=== PATIENT | female | born 1960 | race Two or more races ===

== ENCOUNTER 2017-05-01 06:03 | Emergency (ER) | payer MEDICAID ==
[~2017-05-01] VITALS: Ht 157.5 cm; Wt 68.5 kg
[2017-05-01 06:31] VITALS: BP 159/100
== END 2017-05-01 08:28 | disposition home or self-care (01) ==
LOC: ER 06:10
DX: H66.92 Otitis media, unspecified, left ear (principal); I10 Essential (primary) hypertension; I25.10 Atherosclerotic heart disease of native coronary artery without angina pectoris; E78.5 Hyperlipidemia, unspecified; F17.210 Nicotine dependence, cigarettes, uncomplicated

== ENCOUNTER 2018-07-15 15:32 | Emergency (ER) | payer MEDICAID ==
[~2018-07-15] VITALS: Ht 154.9 cm; Wt 64.9 kg
[2018-07-15 16:09] VITALS: BP 163/89
== END 2018-07-15 18:25 | disposition home or self-care (01) ==
LOC: ER 15:34
DX: I10 Essential (primary) hypertension (principal); E78.5 Hyperlipidemia, unspecified; I25.10 Atherosclerotic heart disease of native coronary artery without angina pectoris; Z98.61 Coronary angioplasty status; F17.210 Nicotine dependence, cigarettes, uncomplicated; Z76.0 Encounter for issue of repeat prescription